=== PATIENT | female | born 1985 | race Two or more races ===

== ENCOUNTER 2018-12-29 13:36 | Emergency (ER) | payer OTHER ==
--- NOTE | 2018-12-29 14:10 | ER Document Report ---
ED General - General Chief Complaint: Vaginal Bleeding Stated Complaint: VAGINAL BLEEDING/SPOTTING Time Seen by Provider: 12/29/18 13:53 Primary Care Provider: HILLARY HOLLINGSWORTH MD [ACTIVE STAFF] - Follow up as needed Mode of Arrival: Ambulatory Information source: Patient TRAVEL OUTSIDE OF THE [place] IN LAST 30 DAYS: No - HPI Patient complains to provider of: Vaginal bleeding Onset: Other - Intermittently since mid June Onset/Duration: Intermittent Quality of pain: No pain Severity: Mild Pain Level: Denies Associated symptoms: None Exacerbated by: Denies Similar symptoms previously: No Recently seen / treated by doctor: No Notes: Patient is a 33-year-old female presenting today for requesting an IUD removal. Patient complains that she has had breakthrough bleeding and spotting for the past 41 days. She is not having any abdominal pain. No fevers or ch ills. No nausea vomiting or diarrhea. Is feeling a little bit weak but is not having any dizziness, shortness of breath, or syncopal episodes. - Related Data Allergies/Adverse Reactions: iodine [Iodine] Allergy (Verified 04/28/16 19:35) Past Medical History - General Information source: Patient - Social History Smoking Status: Never Smoker Family History: Reviewed & Not Pertinent Musculoskeletal Medical History: Reports Hx Arthritis - degenerative Psychiatric Medical History: Reports: Hx Depression - and anxiety Past Surgical History: Reports: Hx Breast Surgery - augmentation, Hx Section - Immunizations Hx Diphtheria, Pertussis, Tetanus Vaccination: Yes Review of Systems - Review of Systems Notes: Constitutional: No fevers. No chills. EENT: No eye redness. No eye pain. No ear pain. No sore throat. Cardiovascular: No chest pain. No palpitations. Respiratory: No cough. No shortness of breath. No respiratory distress. Gastrointestinal: No abdominal pain. No nausea, vomiting, or diarrhea. Genitourinary: Vaginal bleeding Musculoskeletal: Atraumatic. No swelling. No deformities. Skin: No rash or lesions. Lymphatic: No swollen lymph nodes. Neurologic: No headache. No syncope. Psychiatric: No suicidal or homicidal ideation. Physical Exam - Notes Notes: General: Well-developed, well-nourished. In no acute distress. Non-toxic appearing. Cardiac: Well-perfused. Regular rate and rhythm. No murmurs, rubs, or gallops. Pulmonary: No respiratory distress. No cyanosis. Bilateral lung fiels are clear to auscultation. Abdominal: Non-distended. Non-rigid. Bowels sounds are present in all four quadrants. No guarding or rebound. HEENT: Head is atraumatic. Conjunctivae not reddened. No tearing. PERRL. EOMI. Orbits atraumatic. No periorbital swelling or erythema. Oropharynx is without erythema, swelling, or exudates. Neck: Supple. No adenopathy. No meningismus. Dermatologic: Warm with good turgor. No rash. Atraumatic. Chest: Atraumatic. No chest wall tenderness to palpation. Musculoskeletal: Moves all extremities well. No range of motion deficits. no muscular or joint tenderness. No paraspinal muscle tenderness. no midline spinal tenderness or step-off. Genitourinary: Chaperoned by Kali RYAN. External genitalia is normal. Speculum exam reveals no active bleeding in the vault. Intrauterine device in place. Bimanual exam reveals no adnexal masses or tenderness. No cervical motion tenderness. Neurologic: No gross neurologic deficits. Psychiatric: Normal mood. - Genitourinary Notes: Chaperoned by Kali RYAN. Intrauterine device removed using steady constant pressure. Came out intact. No bleeding. Pt tolerated the procedure well. Course - Re-evaluation Re-evalutation: 12/29/18 14:48 IUD was removed successfully. GC chlamydia and wet mount sent to the lab. Low suspicion. Urinalysis, test, and CBC ordered. Once these results and if everything is okay patient can be discharged home 12/29/18 15:49 CBC is normal. HCG is negative. Urinalysis shows no sign of infection. GC chlamydia still pending. We will contact the patient if any of these comes up positive. Will discharge patient home - Laboratory Result Diagrams: 12/29/18 15:16 Laboratory results interpreted by me: 12/29/18 14:32 Urine Ketones TRACE H Urine Ascorbic Acid 20 H Discharge - Discharge Clinical Impression: Encounter for IUD removal, Dysfunctional uterine bleeding Condition: Good Disposition: HOME, SELF-CARE Instructions: Vaginal Bleeding ([facility]) Additional Instructions: Your IUD was removed successfully here. You are currently off control. If you wish to prevent you need to abstain from sex or have your partner wear condoms until such time as you are back on an established control regimen. Referrals: HILLARY HOLLINGSWORTH MD [ACTIVE STAFF] - Follow up tomorrow
[2018-12-29 14:44] LABS: APPEARANCE,URINE SLIGHTLY-CLOUDY; BILIRUBIN,URINE NEGATIVE (NEGATIVE); COLOR,URINE YELLOW; GLUCOSE, URINE NEGATIVE (NEGATIVE); KETONES,URINE TRACE mg/dL (NEGATIVE); LEUKOCYTE ESTERASE,URINE NEGATIVE (NEGATIVE); NITRITE,URINE NEGATIVE (NEGATIVE); PROTEIN,URINE NEGATIVE (NEGATIVE); URINE SPECIFIC GRAVITY 1.011; UROBILINOGEN,URINE NEGATIVE mg/dL (<2.0)
[2018-12-29 15:32] LABS: BACTERIA (WET MOUNT) 4+ BACTERIA SEEN; RBCS (WET MOUNT) FEW RBCS SEEN; T.VAGINALIS (WET MOUNT) NO TRICHOMONAS SEEN; WBCS (WET MOUNT) 4+ WBCS SEEN; YEAST (WET MOUNT) NO YEAST SEEN
[2018-12-29 15:37] LABS: ABSOLUTE EOSINOPHILS # (AUTO) 0.1 10^3/uL (0.0-0.6); ABSOLUTE LYMPHOCYTES (AUTO) 1.8 10^3/uL (0.5-4.7); ABSOLUTE MONOCYTES (AUTO) 0.5 10^3/uL (0.1-1.4); ABSOLUTE NEUT (AUTO) 5.3 10^3/uL (1.7-8.2); BASOPHILS % (AUTO) 0.3 % (0-2); EOSINOPHILS % (AUTO) 1.5 % (0-6); HEMATOCRIT 42.4 % (36.0-47.0); HEMOGLOBIN 14.8 g/dL (12.0-15.5); MEAN CORPUSCULAR HEMOGLOBIN 30.4 pg (27.0-33.4); MEAN CORPUSCULAR HGB CONC 34.9 g/dL (32.0-36.0); MEAN CORPUSCULAR VOLUME 87 fl (80-97); MONOCYTES % (AUTO) 6.8 % (3-13); PLATELET COUNT 373 10^3/uL (150-450); RED BLOOD COUNT 4.86 10^6/uL (3.72-5.28); SEGMENTED NEUTROPHILS % (AUTO) 68.4 % (42-78); TOTAL CELLS COUNTED % (AUTO) 100 %; WHITE BLOOD COUNT 7.7 10^3/uL (4.0-10.5)
[2018-12-29 16:30] VITALS: BP 113/70
[2018-12-29 17:03] LABS: CHLAM PCR NOT DETECTED (NOT DETECT); GON PCR NOT DETECTED (NOT DETECT)
== END 2018-12-29 16:30 | disposition home or self-care (01) ==
LOC: ER 13:36
DX: Z30.432 Encounter for removal of intrauterine contraceptive device (principal); N93.8 Other specified abnormal uterine and vaginal bleeding; R53.1 Weakness
CPT/HCPCS: 36415; 81001; 81025; 85025; 87210; 87491; 87591; 99284

== ENCOUNTER 2019-01-14 12:53 | Emergency (ER) | payer OTHER ==
--- NOTE | 2019-01-14 13:10 | ER Document Report ---
ED Medical Screen (RME) - General Chief Complaint: Vaginal Bleeding Stated Complaint: VAGINAL BLEEDING Time Seen by Provider: 01/14/19 13:04 Primary Care Provider: HECTOR,BRYANT [Primary Care Provider] - Follow up as needed Notes: 33 years old female presents today with vagina bleeding for the last 45 days. She had an IUD which was removed. Denies any headache or dizziness. TRAVEL OUTSIDE OF THE [place] IN LAST 30 DAYS: No - Related Data Allergies/Adverse Reactions: iodine [Iodine] Allergy (Verified 01/14/19 12:55) Past Medical History Renal/ Medical History: Denies: Hx Peritoneal Dialysis Musculoskeltal Medical History: Reports Hx Arthritis - degenerative Psychiatric Medical History: Reports: Hx Depression - and anxiety Past Surgical History: Reports: Hx Breast Surgery - augmentation, Hx Section - Immunizations Hx Diphtheria, Pertussis, Tetanus Vaccination: Yes Physical Exam - Vital signs Vitals: Temp Pulse Resp BP Pulse Ox 100.1 F 75 16 120/68 98 01/14/19 13:01 01/14/19 13:01 01/14/19 13:01 01/14/19 13:01 01/14/19 13:01 Course - Vital Signs Vital signs: Temp Pulse Resp BP Pulse Ox 100.1 F 75 16 120/68 98 01/14/19 13:01 01/14/19 13:01 01/14/19 13:01 01/14/19 13:01 01/14/19 13:01 Doctor's Discharge - Discharge [facility] [[facility] - Follow up as needed
[2019-01-14 13:44] LABS: ABSOLUTE EOSINOPHILS # (AUTO) 0.2 10^3/uL (0.0-0.6); ABSOLUTE LYMPHOCYTES (AUTO) 2.3 10^3/uL (0.5-4.7); ABSOLUTE MONOCYTES (AUTO) 0.6 10^3/uL (0.1-1.4); BASOPHILS % (AUTO) 0.3 % (0-2); EOSINOPHILS % (AUTO) 2.6 % (0-6); HEMATOCRIT 44.5 % (36.0-47.0); HEMOGLOBIN 15.4 g/dL (12.0-15.5); MEAN CORPUSCULAR HEMOGLOBIN 30.4 pg (27.0-33.4); MEAN CORPUSCULAR HGB CONC 34.6 g/dL (32.0-36.0); MEAN CORPUSCULAR VOLUME 88 fl (80-97); MONOCYTES % (AUTO) 6.6 % (3-13); PLATELET COUNT 360 10^3/uL (150-450); RED BLOOD COUNT 5.07 10^6/uL (3.72-5.28); RED CELL DISTRIBUTION WIDTH 13.3 % (11.5-14.0); SEGMENTED NEUTROPHILS % (AUTO) 65.5 % (42-78); TOTAL CELLS COUNTED % (AUTO) 100 %; WHITE BLOOD COUNT 9.2 10^3/uL (4.0-10.5)
[2019-01-14 14:29] LABS: AMORPHOUS SEDIMENT,URINE 1+ /HPF; APPEARANCE,URINE CLOUDY; BILIRUBIN,URINE NEGATIVE (NEGATIVE); COLOR,URINE RED; GLUCOSE, URINE NEGATIVE (NEGATIVE); KETONES,URINE NEGATIVE (NEGATIVE); LEUKOCYTE ESTERASE,URINE NEGATIVE (NEGATIVE); NITRITE,URINE NEGATIVE (NEGATIVE); PROTEIN,URINE 100 mg/dL (NEGATIVE); URINE SPECIFIC GRAVITY 1.016; UROBILINOGEN,URINE NEGATIVE mg/dL (<2.0)
--- NOTE | 2019-01-14 16:17 | RADIOLOGY REPORT (SQ) ---
EXAM DESCRIPTION: U/S NON-OB PELVIS TV W/O DOP COMPLETED DATE/TIME: 01/14/2019 3:32 pm REASON FOR STUDY: Vaginal bleeding COMPARISON: None. TECHNIQUE: Dynamic and static grayscale images acquired of the pelvis via transvaginal approach and recorded on PACS. Additional selected color Doppler and spectral images recorded. LIMITATIONS: None. FINDINGS: UTERUS: Contour normal. No mass. ENDOMETRIAL STRIPE: No focal or generalized thickening. No masses. CERVIX: Small nabothian cysts. Small amount of fluid in the os. RIGHT OVARY AND DOPPLER: Normal size. No worrisome masses. Normal arterial vascular flow without evid ence for torsion. LEFT OVARY AND DOPPLER: Normal size. No worrisome masses. Normal arterial vascular flow without evide nce for torsion. FREE FLUID: None noted. OTHER: No other significant finding. MEASUREMENTS: UTERUS: 9.4 x 5.2 x 4.4 cm ENDOMETRIAL STRIPE: 6 mm RIGHT OVARY: 3.3 x 2.2 x 2.0 cm LEFT OVARY: 3.0 x 2.1 x 2.5 cm IMPRESSION: Small amount of fluid in the cervical os. Otherwise normal. TECHNICAL DOCUMENTATION: JOB ID: [id number] [employer]- All Rights Reserved Rev-04/03 Reading location - IP/workstation name: [email or web address]
--- NOTE | 2019-01-14 18:30 | ER Document Report ---
ED General - General Chief Complaint: Vaginal Bleeding Stated Complaint: VAGINAL BLEEDING Time Seen by Provider: 01/14/19 13:04 Primary Care Provider: HECTOR,BRYANT [Primary Care Provider] - Follow up as needed TRAVEL OUTSIDE OF THE [place] IN LAST 30 DAYS: No - HPI Notes: Patient presents to the emergency department for evaluation of vaginal bleeding. She states she has had vaginal bleeding for approximately 60 days. She was actually seen here before and had her Mirena removed. She states that she was going through tampons too quickly so she switched to a menstrual cup. She had tolerated the Mirena IUD in the past. She has an appointment with the [facility] for follow-up but it is not till the third week of February. She denies any fevers or chills. No nausea or vomiting. As any chest pain or dizziness. Lower abdominal cramping. - Related Data Allergies/Adverse Reactions: iodine [Iodine] Allergy (Verified 01/14/19 12:55) Past Medical History - General Information source: Patient - Social History Smoking Status: Never Smoker Frequency of alcohol use: Occasional Drug Abuse: None Family History: Reviewed & Not Pertinent Patient has suicidal ideation: No Patient has homicidal ideation: No Renal/ Medical History: Denies: Hx Peritoneal Dialysis Musculoskeletal Medical History: Reports Hx Arthritis - degenerative Psychiatric Medical History: Reports: Hx Depression - and anxiety Past Surgical History: Reports: Hx Breast Surgery - augmentation, Hx Section - Immunizations Hx Diphtheria, Pertussis, Tetanus Vaccination: Yes Review of Systems - Review of Systems Constitutional: No symptoms reported EENT: No symptoms reported Cardiovascular: No symptoms reported Respiratory: No symptoms reported Gastrointestinal: No symptoms reported Female Genitourinary: See HPI Musculoskeletal: No symptoms reported Skin: No symptoms reported Physical Exam - Vital signs Vitals: Temp Pulse Resp BP Pulse Ox 100.1 F 75 16 120/68 98 01/14/19 13:01 01/14/19 13:01 01/14/19 13:01 01/14/19 13:01 01/14/19 13:01 - Notes Notes: Vital signs reviewed, please refer to chart. Patient is normocephalic, atraumatic. Pupils equal round, reactive to light. Neck is supple without meningismus. Heart is regular rate and rhythm. Lungs are clear to auscultation bilaterally. Abdomen is soft, nontender, normoactive bowel sounds throughout. Extremities without cyanosis, clubbing, edema. Peripheral pulses are equal. Skin is warm and dry. Patient is awake, alert, neurological exam is nonfocal. Pelvic exam is performed. External genitalia is within normal limits. No genital lesions. Speculum exam is performed. There is scant amount of vaginal bleeding. No cervical tenderness. Course - Re-evaluation Re-evalutation: 01/14/19 18:31 Patient presents emergency department for evaluation of continued vaginal bleeding. She is vitally stable. I did review her labs. Her hemoglobin is over 15. It is actually higher than it was when she was seen here 3 days ago and had IUD removed. The patient was concerned about this vaginal bleeding and asked for a gynecological consult. I did speak to Dr. Cortez. We discussed her vital signs, her lab work. He agrees that there is nothing emergent to do at this time. He strongly [facility] that [facility] This was communicated to the patient and she was discharged. - Vital Signs Vital signs: Temp Pulse Resp BP Pulse Ox 100.1 F 75 16 120/68 98 01/14/19 13:01 01/14/19 13:01 01/14/19 13:01 01/14/19 13:01 01/14/19 13:01 - Laboratory Result Diagrams: 01/14/19 13:27 Laboratory results interpreted by me: 01/14/19 13:27 Urine Protein 100 H Urine Blood LARGE H Urine Ascorbic Acid 20 H Discharge - Discharge Clinical Impression: Abnormal uterine bleeding Condition: Stable Disposition: HOME, SELF-CARE Additional Instructions: [facility]. If you start going through more than 1 pad an hour, you develop chest pain or difficulty breathing, or you develop new or worsening symptoms of any sort, return to the emergency department for reevaluation. [facility]errals: [facility] [Primary [facility]] - Follow up as needed
[2019-01-14 19:38] VITALS: BP 112/78
== END 2019-01-14 19:39 | disposition home or self-care (01) ==
LOC: ER 12:53
DX: N93.8 Other specified abnormal uterine and vaginal bleeding (principal)
CPT/HCPCS: 36415; 76830; 81001; 85025; 99284

== ENCOUNTER 2019-05-14 18:49 | Emergency (ER) | payer OTHER ==
[2019-05-14] MEDS ORDERED: AMOXICILLIN TR/POT CLAVULANATE 500-125 MG TAB PO ONE (21:47)
--- NOTE | 2019-05-14 21:54 | ER Document Report ---
ED General - General Chief Complaint: Dog Bite Stated Complaint: DOG BITE Time Seen by Provider: 05/14/19 21:37 Primary Care Provider: HECTOR,BRYANT [Primary Care Provider] - Follow up as needed Mode of Arrival: Ambulatory Information source: Patient TRAVEL OUTSIDE OF THE [place] IN LAST 30 DAYS: No - HPI Patient complains to provider of: Dog bite right small finger Onset: Just prior to arrival Onset/Duration: Sudden Quality of pain: No pain Severity: None Associated symptoms: None Exacerbated by: Denies Relieved by: Denies Similar symptoms previously: No Recently seen / treated by doctor: No Notes: 33-year-old female was bit by her dog this afternoon after scolding h im. Dog is vaccinated. Has not been free roaming. No history to suggest a dog has any exposure to rabies. Had a good day with the dog prior to this. - Related Data Allergies/Adverse Reactions: iodine [Iodine] Allergy (Verified 05/14/19 18:56) Past Medical History - General Information source: Patient - Social History Smoking Status: Never Smoker Family History: Reviewed & Not Pertinent Renal/ Medical History: Denies: Hx Peritoneal Dialysis Musculoskeletal Medical History: Reports Hx Arthritis - degenerative Psychiatric Medical History: Reports: Hx Depression - and anxiety Past Surgical History: Reports: Hx Breast Surgery - augmentation, Hx Section - Immunizations Hx Diphtheria, Pertussis, Tetanus Vaccination: Yes Review of Systems - Review of Systems Notes: Constitutional: No fevers. No chills. EENT: No eye redness. No eye pain. No ear pain. No sore throat. Cardiovascular: No chest pain. No palpitations. Respiratory: No cough. No shortness of breath. No respiratory distress. Gastrointestinal: No abdominal pain. No nausea, vomiting, or diarrhea. Genitourinary: Atraumatic. No lesions. No pain. No discharge. Musculoskeletal: Atraumatic. No swelling. No deformities. Skin: Puncture wounds right small finger Lymphatic: No swollen lymph nodes. Neurologic: No headache. No syncope. Psychiatric: No suicidal or homicidal ideation. Physical Exam - Vital signs Vitals: Temp Pulse Resp BP Pulse Ox 98.5 F 79 16 124/76 98 05/14/19 18:58 05/14/19 18:58 05/14/19 18:58 05/14/19 18:58 05/14/19 18:58 - Notes Notes: General: Well-developed, well-nourished. In no acute distress. Non-toxic appearing. Cardiac: Well-perfused. Regular rate and rhythm. No murmurs, rubs, or gallops. Pulmonary: No respiratory distress. No cyanosis. Bilateral lung fiels are clear to auscultation. Abdominal: Non-distended. Non-rigid. Bowels sounds are present in all four quadrants. No guarding or rebound. HEENT: Head is atraumatic. Conjunctivae not reddened. No tearing. PERRL. EOMI. Orbits atraumatic. No periorbital swelling or erythema. Oropharynx is without er ythema, swelling, or exudates. Neck: Supple. No adenopathy. No meningismus. Dermatologic: Warm with good turgor. No rash. Atraumatic. Chest: Atraumatic. No chest wall tenderness to palpation. Musculoskeletal: Right hand evaluated. Puncture wounds to the anterior and posterior aspect of the distal right small finger. No active bleeding. Normal range of motion. No bony deformities. Distal neurovascular exam is intact. Genitourinary: Examination deferred Neurologic: No gross neurologic deficits. Psychiatric: Normal mood. Course - Re-evaluation Re-evalutation: 05/14/19 21:51 Explained to the patient that there is no way that her dog who is lived with her for 4 months could suddenly be rabid. Told her there is no need for any rabies shots. Offered x-rays which she promptly declined due to how long she is already been waiting here. Her DTaP is up-to-date. We will clean up the wound and start her on Augmentin tonight. - Vital Signs Vital signs: Temp Pulse Resp BP Pulse Ox 98.5 F 79 16 124/76 98 05/14/19 18:58 05/14/19 18:58 05/14/19 18:58 05/14/19 18:58 05/14/19 18:58 Discharge - Discharge Clinical Impression: Animal bite of finger Qualifiers: Encounter type: initial encounter Qualified Code(s): S61.259A - Open bite of unspecified finger without damage to nail, initial encounter Condition: Good Disposition: HOME, SELF-CARE Instructions: Puncture Wound ([facility]), Animal Bites ([facility]) Additional Instructions: Keep the wound clean with soap and water. You can use triple antibiotic ointment or bacitracin and a Band-Aid to cover up during the day. Be sure to take all 7 days of your Augmentin antibiotic. He is return to see the doctor here or at your local clinic if you notice any signs of the redness or swelling getting any worse. Prescriptions: Amox Tr/Potassium Clavulanate [Augmentin 875-125 Tablet] 1 tab PO BID 7 Days #14 tablet [facility]errals: [facility] [Primary [facility]] - Follow up as needed [facility] [Provider Group] - Follow up as needed
[2019-05-14 22:31] VITALS: BP 129/71
== END 2019-05-14 22:30 | disposition home or self-care (01) ==
LOC: ER 18:49
DX: S61.256A Open bite of right little finger without damage to nail, initial encounter (principal); W54.0XXA Bitten by dog, initial encounter
CPT/HCPCS: 99283

== ENCOUNTER → 2020-06-15 | Outpatient (CLI) | payer OTHER ==
--- NOTE | 2020-06-15 16:02 | RADIOLOGY REPORT (SQ) ---
EXAM DESCRIPTION: SHOULDER BILAT 2 OR MORE VIEWS IMAGES COMPLETED DATE/TIME: 06/15/2020 12:56 pm REASON FOR STUDY: V M25.551 PAIN IN RIGHT HIP M25.512 PAIN IN LEFT SHOULDER COMPARISON: None. NUMBER OF VIEWS: Six views. TECHNIQUE: Internal rotation, external rotation, and Y view images acquired of the right and left sh oulder. LIMITATIONS: None. FINDINGS: MINERALIZATION: Normal. BONES: No acute fracture. No worrisome bone lesions. No significant osteophytes. GLENOHUMERAL JOINT: No significant findings. ACROMIOCLAVICULAR JOINT: No large osteophytes. SOFT TISSUES: No calcifications. VISUALIZED RIBS, SPINE, AND LUNG: No other significant finding. OTHER: No other significant finding. IMPRESSION: NEGATIVE STUDY OF THE RIGHT AND LEFT SHOULDERS. NO EXPLANATION FOR PAIN. TECHNICAL DOCUMENTATION: JOB ID: [id number] 2010 [employer]- All Rights Reserved Reading location - IP/workstation name: [email or web address]
--- NOTE | 2020-06-15 16:03 | RADIOLOGY REPORT (SQ) ---
EXAM DESCRIPTION: HIP RIGHT AP/LATERAL IMAGES COMPLETED DATE/TIME: 06/15/2020 12:56 pm REASON FOR STUDY: PAIN IN RIGHT AND LEFT SHOULDER AND PAIN IN RIGHT HIP M25.551 PAIN IN RIGHT HIP M 25.512 PAIN IN LEFT SHOULDER COMPARISON: None. NUMBER OF VIEWS: Two views. TECHNIQUE: AP pelvis and additional frog-leg view of the right hip. LIMITATIONS: None. FINDINGS: MINERALIZATION: Normal. RIGHT HIP: Mild osteoarthritic changes. LEFT HIP: Mild osteoarthritic changes. PUBIS AND ISCHIUM: No fracture. PELVIS: No fracture. SACRUM: No fracture or dislocation. No worrisome bone lesions. LOWER LUMBAR SPINE: No fracture or dislocation. No worrisome bone lesions. No significant disc disea se. SOFT TISSUES: No findings. OTHER: No other significant finding. IMPRESSION: Mild osteoarthritis. TECHNICAL DOCUMENTATION: JOB ID: [id number] 2010 [employer]- All Rights Reserved Reading location - IP/workstation name: [email or web address]
== END ==
LOC: RAD 12:27
PROVIDERS: ATTEND Nurse Practitioner Family
DX: M16.11 Unilateral primary osteoarthritis, right hip (principal); M25.551 Pain in right hip; M25.511 Pain in right shoulder; M25.512 Pain in left shoulder